=== PATIENT | female | born 1980 | race Caucasian/White ===

== ENCOUNTER → 2019-04-03 17:16 | Outpatient (CLI) | payer OTHER, SELFPAY ==
[2019-04-03 18:16] LABS: HCG Quantitative /Beta subunit 12925 mIU/mL
== END ==
PROVIDERS: PCP Family Medicine; Visit Provider Obstetrics & Gynecology
DX: Z34.90 Encounter for supervision of normal pregnancy, unspecified, unspecified trimester (principal); N96 Recurrent pregnancy loss
CPT/HCPCS: 36415; 84702

== ENCOUNTER → 2019-04-07 08:03 | Outpatient (CLI) | payer OTHER, SELFPAY ==
[2019-04-07 09:02] LABS: HCG Quantitative /Beta subunit 11004 mIU/mL
== END ==
PROVIDERS: PCP Family Medicine; Visit Provider Obstetrics & Gynecology
DX: Z34.90 Encounter for supervision of normal pregnancy, unspecified, unspecified trimester (principal); N96 Recurrent pregnancy loss
CPT/HCPCS: 36415; 84702

== ENCOUNTER → 2019-04-09 08:16 | Outpatient (CLI) | payer OTHER, SELFPAY ==
[2019-04-09 09:49] LABS: HCG Quantitative /Beta subunit 10215 mIU/mL
== END ==
PROVIDERS: PCP Family Medicine; Visit Provider Obstetrics & Gynecology
DX: Z34.90 Encounter for supervision of normal pregnancy, unspecified, unspecified trimester (principal); N96 Recurrent pregnancy loss
CPT/HCPCS: 36415; 84702

== ENCOUNTER 2019-04-16 11:47 | Day surgery (SDC) | payer OTHER, SELFPAY ==
[2019-04-14 08:52] VITALS: BMI 29.4
[2019-04-16] VITALS (7 sets, daily range): BP systolic 97–105; BP diastolic 59–73; PULSE 66–89; RESP 11–16; TEMP 36.4–36.7; O2SAT 97–100; BMI 29.4
--- NOTE | 2019-04-16 | PATH_ITS ---
[facility] Accession Number: [id number] . 01 Material submitted: . PART A: mons pubis - RIGHT MONS PUBIS PART B: product of conception - PRODUCTS OF CONCEPTION . 02 Diagnosis: A. Skin, Right Mons Pubis, Punch Biopsy: Pending dermatopathology consultation; final diagnosis will be issued in an addendum. . B. Products of Conception: Chorionic villi present. No evidence of malignancy. MRV 04/18/2019 1200 Local . 02 Electronically signed: . Kendall Johnson MD, PhD, Pathologist NPI- [id number] . 01 Gross description: . A. Received in a formalin-filled container, labeled punch biopsy from right mons pubis, and consists of a 0.5 x 0.4 cm, portillo, wrinkled, hair-bearing, unoriented punch biopsy excised to a depth of 0.4 cm. The base is inked orange. The specimen is bisected and entirely submitted in A1. B. Received in a formalin-filled container products of conception, and consists of multiple pink-portillo soft tissue fragments mixed with blood clot, 9.0 x 6.0 x 3.5 cm in aggregate. Sectioning reveals a moderate amount of chorionic villi; however, a gestational sac or parts are not grossly identified. The remaining cut surfaces are focally hemorrhagic, otherwise portillo, grossly unremarkable. 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 ([id number]) /MRV 04/17/2019 1130 Local . 02 Pathologist provided ICD-10: O02.1, L30.9 . 02 CPT . 712067, 331950 Performed at: [address] [facility], [place], [place] [id number] MD Cameron Alcantara MD Phone: [phone] Performed at: 02 [facility] [address] [place] [id number] MD Alem Weber MD Phone: [phone]
[2019-04-16] MEDS: LACTATED RINGERS 1,000 ML 42 ML IV (12:28)
--- NOTE | 2019-04-16 13:21 | PM.HP.1 ---
History of Present Illness History of Present Illness Date Patient Seen: 04/16/19 Time Patient Seen: 13:41 Chief complaint: [id number] Narrative: Patient is a 38-year-old 4 para 1 with a missed Patient History Medical History (Updated 04/16/19 @ 14:02 by Andie Mcdermott MD) Ashkenazi Roman Catholic ancestry (Acute) HSV-1 infection (Acute) Keratosis pilaris (Acute) Kidney stones (Chronic) PCOS (polycystic ovarian syndrome) (Chronic) Spontaneous vaginal delivery (Resolved) Vaginal delivery (Resolved) Surgical History (Updated 10/02/17 @ 05:17 by Arline Perez MD) Status post dilation and curettage Family & Social History Family History (Updated 04/01/19 @ 17:06 by Samira Pedersen RN) Father Hypertension Father Hypertension Hyperlipidemia Sister Anxiety Grandfather No problems noted. Grandmother Emphysema of lung Social History: household members spouse,children Tobacco & Substance use: Smoking Status Current some day smoker alcohol intake never Meds Home Medications and Allergies Home Medications Medication Instructions Recorded Confirmed Type metformin [Glucophage] 500 mg PO DAILY 04/14/19 04/16/19 History triamcinolone acetonide 1 applictn TOP BID PRN 04/16/19 04/14/19 History Allergies Allergy/AdvReac Type Severity Reaction Status Date / Time acetaminophen [From Percocet] AdvReac Intermediate Diaphoretic Verified 04/16/19 12:15 reaction to med oxycodone [From Percocet] AdvReac Intermediate Diaphoretic Verified 04/16/19 12:15 reaction to med Exam Vital Signs (past 8 hours): - 04/16/19 12:17 Temperature 97.7 F Pulse Rate 83 Respiratory Rate 16 Blood Pressure 102/71 Pulse Oximetry 98 Oxygen Delivery Method Room Air Narrative Exam Narrative: HEENT: No thyromegaly, no anterior cervical or supraclavicular lymphadenopathy. Lungs:Clear to auscultation bilaterally, no wheezes. Cardiovascular: Regular rate and rhythm, no murmurs, rubs, or gallops. Abdomen: No scars. No hepatosplenomegaly. No masses palpable. External genitalia: On the mons pubis there are 2 erythematous lesions measuring approximately 1 and half to 1.75 cm. These are scaly. Vagina: Normal Cervix: Normal Bimanual exam: 8 Week size uterus. Mobile. Rectal: No masses. Assessment & Plan Assessment and plan (1) Missed : Current visit: Yes Status: Acute Assessment & Plan narrative: Assessment: 38-year-old 4 para 1 with a missed at 9 weeks Lesions of the mons pubis Plan: Suction D&C Biopsy of the mons pubis The risks, benefits, and alternatives to the procedure were explained to the patient. The risks including bleeding, infection, and uterine perforation. She understands these risks and agrees to proceed. A full par Q was held and consent form was signed.
--- NOTE | 2019-04-16 14:03 | PM.PREOP ---
Pre-operative Note Interval Note History & Physical reviewed/Exam performed by Physician: Yes Changes to H&P: No
--- NOTE | 2019-04-16 14:31 | SUR.OPER ---
Lithotomy on padded OR bed, head on pillow, arms secured on padded arm boards at <90 degrees abduction. Legs secured in padded yellow fins stirrups.
[2019-04-16] MEDS: BUPIVACAINE 0.25% W/ EPI (PF) 10 ML VIAL 3 ML INJ (14:48)
--- NOTE | 2019-04-16 16:25 | SUR.PHASEII ---
Discharge note: Phase II. VSS, O2 sat WNL. Pain level 1/10. Small blood spot on montez pad. Discharge instructions reviewed with good undertanding by patient and spouse. Stable for discharge to home. W/C to car.
--- NOTE | 2019-04-28 07:16 | PM.GYNOP.1 ---
Operative Date/Time/Diagnoses Date of procedure: 04/16/19 Time of procedure: 14:30 Pre-op diagnosis: Missed at 7 weeks Post-op diagnosis: same Procedure & Clinicians Procedure: Procedures Operation Date: 04/16/19 13:00 Actual Procedures Side Surgeon p Suction Dilation and Curettage Andie Mcdermott MD s punch biopsy of mons pubis Right Andie Mcdermott MD Indications: Missed at 7 weeks Surgeon: Andie Mcdermott Anesthesia Type: General (LMA) Operative Notes Findings: Seven week size anteverted uterus Large amount of products conception Closure Type: not applicable Specimen(s): other (Products of conception) Estimated blood loss (mL): 50 Blood products transfused: none Procedure in detail: After informed consent was obtained, the patient was taken to the operating room where she was placed in the dorsal supine position. After adequate LMA general anesthesia was achieved, she was placed in the dorsal lithotomy position, and prepped and draped in the usual sterile fashion. A time-out was performed. A bivalve speculum was placed into the vagina. A single-tooth tenaculum was placed on the anterior lip of the cervix. The cervical os was sequentially dilated to the # 8 Hegar dilator. The # 8 plastic curved curette passed easily into the endometrial cavity. Several passes with suction revealed a large amount of products of conception. There was also a large amount of blood and amniotic fluid. The last pass with suction revealed small amount of blood only. The instruments were removed from the uterus. The single-tooth tenaculum was removed from the anterior lip of the cervix. The bivalve speculum was removed from the vagina. There was a small amount of blood coming from the cervical os. Sponge, lap, and instrument counts were correct x2. The patient tolerated the procedure well, was taken to PACU in stable condition. Complications: none Post-operative Condition: stable Disposition: PACU Plan for aftercare: Home after recovery
== END 2019-04-16 16:01 | disposition home or self-care (01) ==
PROVIDERS: PCP Family Medicine; Visit Provider Obstetrics & Gynecology
PROC: (CPT 58120; principal; 2019-04-16 13:00)
PROC: (CPT 59820; 2019-04-16 13:00)
DX: O02.1 Missed abortion (principal); Z3A.01 Less than 8 weeks gestation of pregnancy; E28.2 Polycystic ovarian syndrome; F17.210 Nicotine dependence, cigarettes, uncomplicated; L30.9 Dermatitis, unspecified
CPT/HCPCS: 59820; 56605; J1885; J2250; J2704; J3010

== ENCOUNTER → 2019-05-06 16:30 | Outpatient (CLI) | payer OTHER, SELFPAY ==
[2019-05-06 18:36] LABS: Progesterone, Total 1.22 ng/mL
[2019-05-06 18:39] LABS: Free T4, Direct Thyroxine 1.02 ng/dL (0.78-2.19)
[2019-05-06 18:53] LABS: Thyroid Stimulating Hormone 0.26 uIU/mL (0.47-4.68)
[2019-05-09 23:49] LABS: Protein C Antigen 102 % normal (70-140)
[2019-05-12 08:31] LABS: PTT-LA Screen 35 seconds (< OR = 40); dDRVVT Screen 40 seconds (< OR = 45)
[2019-05-13 10:32] LABS: B2-Glycoprotein I IgA AB < 9 SAU (< OR = 20); B2-Glycoprotein I IgG AB < 9 SGU (< OR = 20); B2-Glycoprotein I IgM AB < 9 SMU (< OR = 20); Cardiolipin Ab IgA < 11 APL; Cardiolipin Ab IgG < 14 GPL; Cardiolipin Ab IgM 17 MPL; Phos. Serine AB IgM < 25 U/mL
[2019-05-15 10:26] LABS: dRVVT Screen 40
== END ==
PROVIDERS: PCP Family Medicine; Visit Provider Obstetrics & Gynecology
DX: N96 Recurrent pregnancy loss (principal)
CPT/HCPCS: 36415; 81240; 81241; 81291; 84144; 84439; 84443; 85302; 85306; 85597; 85613; 85730; 86146; 86147; 86148

== ENCOUNTER → 2020-04-28 08:32 | Outpatient (CLI) | payer OTHER, SELFPAY ==
[2020-04-28 09:40] LABS: COVID19 -Nasal RAPID Negative (Negative)
== END ==
PROVIDERS: PCP Family Medicine; Visit Provider Student in an Organized Health Care Education/Training Program
DX: R05 Cough (principal); Z11.59 Encounter for screening for other viral diseases
CPT/HCPCS: 87635

== ENCOUNTER 2020-05-26 09:58 | Day surgery (SDC) | payer OTHER, SELFPAY ==
[2020-05-25 07:27] VITALS: BMI 32.5
--- NOTE | 2020-05-26 | PATH_ITS ---
[facility] Accession Number: [id number] . 01 Material submitted: . product of conception - PRODUCTS OF CONCEPTION . 02 Diagnosis: Products of Conception: Products of conception identified. V 05/31/2020 0948 Local . 02 Electronically signed: . Ivy Liu MD, Pathologist NPI- [id number] . 01 Gross description: . The specimen is received in formalin, labeled products of conception, and consists of multiple portillo-pink fragments of soft tissue measuring 8.0 x 6.5 x 2.0 cm in aggregate. Chorionic villi are identified. No parts are identified. operations support representative sections are submitted in cassettes A1-A2. ([id number]) /[facility] 05/31/2020 0530 Local . 02 Pathologist provided ICD-10: O02.1 . 02 CPT . 788866 Performed at: 01 [facility] [address] [id number] MD Cameron Alcantara MD Phone: [phone] Performed at: 02 [facility] [address] [place], [place] [id number] MD Alem Weber MD Phone: [phone]
[2020-05-26 10:46] LABS: COVID19 -Nasal RAPID Negative (Negative)
[2020-05-26] MEDS: LACTATED RINGERS 1,000 ML 42 ML IV (10:57)
[2020-05-26] MEDS: ACETAMINOPHEN 325 MG TABLET 975 MG PO (12:28)
[2020-05-26] MEDS: SCOPOLAMINE 1 PATCH TOP (12:28)
--- NOTE | 2020-05-26 12:28 | P.HP_ITS ---
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 ancestry HSV-1 infection Irregular menses (~1996) Keratosis pilaris Kidney stones MTHFR deficiency complicating (~05/2019) Painful menstrual flow (~1996) PCOS (polycystic ovarian syndrome) (~2012) Psoriasis (~2016) Spontaneous vaginal delivery Vaginal delivery Surgical History (Updated 05/22/20 @ 21:34 by Khloe Pappas) Anesthesia H/O dilation and curettage (~04/16/19) Status post dilation and curettage [place] teeth extracted (~2001) Family & Social History Family History (Updated 05/21/20 @ 13:03 by Shena Marquez RN) Father Hypertension Hyperlipidemia Sister Anxiety Grandfather No problems noted. Grandmother Emphysema of lung Smoker Twin gestation with fourth Mother No problems noted. Grandfather Family estrangement Grandmother No problems noted. Social History: household members spouse,children lives independently Yes caregiver/support person No Tobacco & Substance use: Smoking Status Never smoker alcohol intake never Substance Use Type does not use Meds Home Medications and Allergies Home Medications Medication Instructions Recorded Confirmed Type cholecalciferol (vitamin D3) 1 tab PO DAILY 05/13/19 05/26/20 History prenat.vits,hadley,pmp-dlha-ugmtx 1 tab PO DAILY 05/13/19 05/26/20 History metformin 500 mg tablet 500 mg PO DAILY #90 tab 09/12/19 05/26/20 Rx enoxaparin 40 mg/0.4 mL 40 mg SUBCUT DAILY #12 ml 04/26/20 05/26/20 Rx subcutaneous syringe progesterone micronized 200 mg 200 mg PO BEDTIME #90 cap 04/26/20 05/26/20 Rx capsule Allergies Allergy/AdvReac Type Severity Reaction Status Date / Time banana AdvReac Intermediate Itchy Verified 05/24/20 12:31 throat oxycodone [From Percocet] AdvReac Intermediate Diaphoretic Verified 05/24/20 12:31 reaction to med Exam Vital Signs (past 8 hours): HEENT: No thyromegaly, no anterior cervical or supraclavicular lymphadenopathy. Lungs:Clear to auscultation bilaterally, no wheezes. Cardiovascular: Regular rate and rhythm, no murmurs, rubs, or gallops. Abdomen: No scars. No hepatosplenomegaly. No masses palpable. External genitalia: Normal Vagina: Normal Cervix: Normal Bimanual exam: 7 Week size anteverted uterus. Mobile.] No adnexal masses or tenderness Rectal: No masses. Objective Labs Labs: Laboratory Results - last 24 hr 05/26/20 10:04 COVID-19 PCR Negative Assessment & Plan Assessment & Plan narrative: Assessment: 39-year-old 8 para 2 with a missed Ab at 7 weeks Plan: Suction D&C The risks, benefits, and alternatives to the procedure were explained to the patient. The risks including bleeding, infection, and uterine perforation. She understands these risks and agrees to proceed. A full par Q was held and consent form was signed. COVID-19 COVID-19 status: Negative Result date/Date tested (Pos, Neg/Pending): 05/26/20 Time Spent With Patient Time with patient: 15-24 minutes
--- NOTE | 2020-05-26 12:40 | PM.PREOP ---
Pre-operative Note COVID-19 COVID-19 status: Negative Result date/Date tested (Pos, Neg/Pending): 05/26/20 Interval Note History & Physical reviewed/Exam performed by Physician: Yes Changes to H&P: No H&P completed within 30 days and has changed as indicated here:: 05/26/20
--- NOTE | 2020-05-26 13:13 | P.OP_ITS ---
Operative Date/Time/Diagnoses Date of procedure: 05/26/20 Time of procedure: 13:13 Pre-op diagnosis: Missed Ab Post-op diagnosis: same Procedure & Clinicians Procedure: Procedures Operation Date: 05/26/20 11:45 Actual Procedures Side Surgeon p patrick D&Luc Mcdermott MD Indications: Missed Ab Surgeon: Andie Mcdermott Anesthesia Type: General (LMA) Operative Notes Findings: Seven week size anteverted uterus Large amount of products conception Closure Type: not applicable Specimen(s): other (Products of conception) Estimated blood loss (mL): 15 Blood products transfused: none Procedure in detail: After informed consent was obtained, the patient was taken to the operating room where she was placed in the dorsal supine position. After adequate LMA general anesthesia was achieved, she was placed in the dorsal lithotomy position, and prepped and draped in the usual sterile fashion. A time-out was performed. A bivalve speculum was placed into the vagina and the anterior lip of the cervix grasped with a single-tooth tenaculum. The cervical os was sequentially dilated to the # 8 Hegar dilator. The # 7 curved plastic curette passed easily into the endometrial cavity. Several passes with suction revealed a large amount of fluid and tissue. Suction curette was removed. Polyp forceps were used to remove some small pieces of tissue. Several more passes with suction revealed blood only. Gentle sharp curettage was performed yielding minimal amount of tissue. One more pass with suction revealed blood only. The instruments were removed from the uterus. The single-tooth tenaculum was removed from the anterior lip of the cervix. The bivalve speculum was removed from the vagina. Sponge, lap, and instrument counts were correct x2. The patient tolerated the procedure well, and was taken to PACU in stable cond ition. Complications: none Post-operative Condition: stable Disposition: PACU Plan for aftercare: Home after recovery
[2020-05-26 13:14] VITALS: BP 120/75; PULSE 78; RESP 16; TEMP 36.2; O2SAT 99
[2020-05-26 13:19] VITALS: BP 112/72; PULSE 76; RESP 16; O2SAT 99
--- NOTE | 2020-05-26 13:20 | SUR.OPER ---
Lithotomy on padded OR bed, head on pillow, arms secured on padded arm boards at <90 degrees abduction. Legs secured in padded yellow fins stirrups.
[2020-05-26 13:24] VITALS: BP 114/70; PULSE 74; RESP 16; O2SAT 99
[2020-05-26 13:29] VITALS: BP 121/71; PULSE 80; RESP 16; O2SAT 99
[2020-05-26 13:33] VITALS: BP 113/61; PULSE 86; RESP 12; TEMP 36.3; O2SAT 100
[2020-05-26 13:54] VITALS: BP 108/77; PULSE 66; RESP 16; TEMP 36.3; O2SAT 100
== END 2020-05-26 14:00 | disposition home or self-care (01) ==
PROVIDERS: PCP Family Medicine; Referring Provider Obstetrics & Gynecology; Visit Provider Obstetrics & Gynecology
PROC: (CPT 58120; principal; 2020-05-26 11:45)
DX: O02.1 Missed abortion (principal); Z3A.01 Less than 8 weeks gestation of pregnancy; Z20.828 Contact with and (suspected) exposure to other viral communicable diseases
CPT/HCPCS: 59820; 87635; J1100; J1885; J2250; J2405; J2704

== ENCOUNTER → 2020-09-30 08:06 | Outpatient (CLI) | payer OTHER, SELFPAY ==
[2020-09-30 08:55] LABS: Hemoglobin A1C% w Est Avg Glu 5.2 % (4.0-6.0)
== END ==
PROVIDERS: PCP Family Medicine; Referring Provider Obstetrics & Gynecology; Visit Provider Obstetrics & Gynecology
DX: N96 Recurrent pregnancy loss (principal); E28.2 Polycystic ovarian syndrome; R76.0 Raised antibody titer
CPT/HCPCS: 36415; 83036; 84439; 84443

== ENCOUNTER → 2021-11-07 15:57 | Outpatient (CLI) | payer OTHER, SELFPAY ==
--- NOTE | 2021-11-07 15:59 | DI.MG.S_ITS ---
BILATERAL DIGITAL SCREENING MAMMOGRAM 3D/2D WITH CAD: 11/07/2021 CLINICAL: Routine screening. Baseline exam. No prior exams were available for comparison. The tissue of both breasts is heterogeneously dense. This may lower the sensitivity of mammography. Current study was also evaluated with a Computer Aided Detection (CAD) system. No significant masses, calcifications, or other findings are seen in either breast. IMPRESSION: NEGATIVE There is no mammographic evidence of malignancy. A 1 year screening mammogram is recommended. This exam was interpreted at Station ID: [id number]. NOTE: For mammograms, a report in lay terms will be sent to the patient. Approximately 15% of breast malignancies will not be visualized mammographically. In the management of a palpable breast mass, a negative mammogram must not discourage biopsy of a clinically suspicious lesion. Electronically Signed By: Camron wei/diana:11/08/2021 08:25:14 letter sent: Normal Exam ACR BI-RADS Category 1: Negative 3341F
== END ==
PROVIDERS: PCP Family Medicine; Referring Provider Family Medicine; Visit Provider Family Medicine
DX: Z12.31 Encounter for screening mammogram for malignant neoplasm of breast (principal)
CPT/HCPCS: 77063; 77067

== ENCOUNTER → 2022-03-14 17:10 | Outpatient (CLI) | payer OTHER, SELFPAY ==
[2022-03-14 18:22] LABS: HCG Quantitative /Beta subunit 32.1 mIU/mL
== END ==
PROVIDERS: PCP Family Medicine; Referring Provider Obstetrics & Gynecology; Visit Provider Obstetrics & Gynecology
DX: N91.2 Amenorrhea, unspecified (principal); N96 Recurrent pregnancy loss
CPT/HCPCS: 36415; 84702

== ENCOUNTER → 2022-11-08 16:30 | Outpatient (CLI) | payer OTHER, SELFPAY ==
--- NOTE | 2022-11-08 | DI.MG.S_ITS ---
BILATERAL DIGITAL SCREENING MAMMOGRAM 3D/2D WITH CAD: 11/08/2022 CLINICAL: Routine screening. Comparison is made to exam dated: 11/07/2021 mammogram - [facility]. Both breasts are heterogeneously dense, which may obscure small masses (category c / 51-75% glandular tissue). Current study was also evaluated with a Computer Aided Detection (CAD) system. There is a possible developing asymmetry with an obscured margin in the left breast posterior depth central to the nipple seen on the craniocaudal view only. No other significant masses, calcifications, or other findings are seen in either breast. IMPRESSION: INCOMPLETE: NEEDS ADDITIONAL IMAGING EVALUATION The possible developing asymmetry in the left breast is indeterminate. Additional views with possible ultrasound are recommended. Based on the Tyrer Cuzick model (a risk assessment model) the patient's lifetime risk is 14.1% and her 10 year risk is 1.9%. According to the ACR, ACS, and NCCN guidelines, an annual breast MRI exam along with mammogram is recommended if the patient's lifetime risk is 20% or greater. This exam was interpreted at Station ID: [id number]. NOTE: For mammograms, a report in lay terms will be sent to the patient. Approximately 15% of breast malignancies will not be visualized mammographically. In the management of a palpable breast mass, a negative mammogram must not discourage biopsy of a clinically suspicious lesion. Electronically Signed By: Corey Polanco M.D. [facility]/:11/10/2022 17:03:29 letter sent: Additional Imaging Needed ACR BI-RADS Category 0: Incomplete 3340F
== END ==
PROVIDERS: PCP Family Medicine; Referring Provider Family Medicine; Visit Provider Family Medicine
DX: Z12.31 Encounter for screening mammogram for malignant neoplasm of breast (principal)
CPT/HCPCS: 77063; 77067

== ENCOUNTER → 2022-12-06 09:36 | Outpatient (CLI) | payer OTHER, SELFPAY ==
--- NOTE | 2022-12-06 09:37 | DI.MG.S_ITS ---
UNILATERAL LEFT DIGITAL DIAGNOSTIC MAMMOGRAM 3D/2D WITH ADDITIONAL VIEWS: 12/06/2022 CLINICAL: Additional evaluation requested from prior study. Comparison is made to exams dated: 11/08/2022 mammogram and 11/07/2021 mammogram - [facility]. The left breast is heterogeneously dense, which may obscure small masses (category c / 51-75% glandular tissue). There is a possible asymmetry in the left breast posterior depth central to the nipple seen on the craniocaudal view only. This is not seen in additional views and likely represents superimposition. No other significant masses or calcifications are seen in the breast. IMPRESSION: BENIGN There is no mammographic evidence of malignancy. Return to annual mammogram screening schedule is recommended. Based on the Tyrer Cuzick model (a risk assessment model) the patient's lifetime risk is 14.1% and her 10 year risk is 1.9%. According to the ACR, ACS, and NCCN guidelines, an annual breast MRI exam along with mammogram is recommended if the patient's lifetime risk is 20% or greater. This exam was interpreted at Station ID: [id number]. NOTE: For mammograms, a report in lay terms will be sent to the patient. Approximately 15% of breast malignancies will not be visualized mammographically. In the management of a palpable breast mass, a negative mammogram must not discourage biopsy of a clinically suspicious lesion. Electronically Signed By: Ted Mesa M.D. lc/:12/06/2022 10:05:56 letter sent: Normal Exam ACR BI-RADS Category 2: Benign Finding(s) 3342F
== END ==
PROVIDERS: PCP Family Medicine; Referring Provider Family Medicine; Visit Provider Family Medicine
DX: R92.8 Other abnormal and inconclusive findings on diagnostic imaging of breast (principal); N63.20 Unspecified lump in the left breast, unspecified quadrant
CPT/HCPCS: 77065; G0279

== ENCOUNTER → 2023-06-11 08:05 | Outpatient (CLI) | payer OTHER, SELFPAY ==
[2023-06-11 10:00] LABS: Alanine Aminotransferase 20 IU/L (<35); Albumin Globulin Ratio 1.3 (1.0-2.8); Alkaline Phosphatase 67 U/L (38-126); Aspartate Aminotransferase 20 IU/L (14-36); BUN Creatinine Ratio 12.5 (6-22); Bilirubin Total 0.5 mg/dL (0.2-1.3); Blood Urea Nitrogen 10 mg/dL (7-17); Calcium 9.3 mg/dL (8.4-10.2); Carbon Dioxide 27 mmol/L (22-32); Chloride 104 mmol/L (98-107); Cholesterol 198 mg/dL (140-199); Estimated Glomerular Filt Rate > 60 mL/min (>60); Globulin 3.2 g/dL (1.7-4.1); Glucose 83 mg/dL (70-100); HDL Cholesterol 49 mg/dL (40-60); HEMOLYSIS < 15 (0-50); LDL Cholesterol Calculated 130 mg/dL (<100); Potassium 4.4 mmol/L (3.4-5.1); Sodium 138 mmol/L (137-145); Total Protein 7.2 g/dL (6.3-8.2); Triglycerides 97 mg/dL (35-150)
[2023-06-11 11:20] LABS: Creatinine Urine Random 286.6 mg/dL
[2023-06-12 19:59] LABS: Microalbumi Creatinin Ratio Ur 32.7 ug/mg CR (<30); Microalbumin Urine Random 9.4 mg/dL (0-1.6)
== END ==
PROVIDERS: PCP Family Medicine; Referring Provider Family Medicine; Visit Provider Family Medicine
DX: I10 Essential (primary) hypertension (principal)
CPT/HCPCS: 36415; 80053; 80061; 82043; 82570

== ENCOUNTER → 2023-11-15 15:33 | Outpatient (CLI) | payer OTHER, SELFPAY ==
--- NOTE | 2023-11-15 | DI.MG.S_ITS ---
BILATERAL DIGITAL SCREENING MAMMOGRAM 3D/2D WITH CAD: 11/15/2023 CLINICAL: Routine screening. Comparison is made to exams dated: 12/06/2022 mammogram, 11/08/2022 mammogram, and 11/07/2021 mammogram - [facility]. Both breasts are heterogeneously dense, which may obscure small masses (category c / 51-75% glandular tissue). Current study was also evaluated with a Computer Aided Detection (CAD) system. No significant masses, calcifications, or other findings are seen in either breast. There has been no significant interval change. IMPRESSION: NEGATIVE There is no mammographic evidence of malignancy. A 1 year screening mammogram is recommended. Based on the Tyrer Cuzick model (a risk assessment model) the patient's lifetime risk is 14.0% and her 10 year risk is 2.1%. According to the ACR, ACS, and NCCN guidelines, an annual breast MRI exam along with mammogram is recommended if the patient's lifetime risk is 20% or greater. This exam was interpreted at Station ID: [id number]. NOTE: For mammograms, a report in lay terms will be sent to the patient. Approximately 15% of breast malignancies will not be visualized mammographically. In the management of a palpable breast mass, a negative mammogram must not discourage biopsy of a clinically suspicious lesion. Electronically Signed By: Ted bell/diana:11/16/2023 09:37:03 letter sent: Normal Exam ACR BI-RADS Category 1: Negative 3341F
== END ==
LOC: MAMMO 15:33
PROVIDERS: PCP Family Medicine; Referring Provider Family Medicine; Visit Provider Family Medicine
DX: Z12.31 Encounter for screening mammogram for malignant neoplasm of breast (principal); R92.333 Mammographic heterogeneous density, bilateral breasts
CPT/HCPCS: 77063; 77067

== ENCOUNTER 2024-06-17 16:15 | Outpatient (RCR) | payer OTHER, SELFPAY ==
--- NOTE | 2024-05-13 16:04 | PT.OIE ---
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 Irregular menses (~1996) Keratosis pilaris Kidney stones MTHFR deficiency complicating (~05/2019) Painful menstrual flow (~1996) PCOS (polycystic ovarian syndrome) (~2012) Psoriasis (~2016) Spontaneous vaginal delivery Vaginal delivery Past Surgical History (Last Updated 05/22/20 @ 21:34 by Khloe Pappas) Anesthesia H/O dilation and curettage (~04/16/19) Status post dilation and curettage [place] teeth extracted (~2001) Visit Care Team Role Provider Type Gela Butler MD Attending Provider Physician Family Provider Primary Care Provider Referring Provider Specialty: [facility] Practice Address: [address] [place] [address], [facility] Email: [email or web address] Physical Therapy Initial Evaluation PT-OP-A Visit Information Start: 05/12/24 14:50 Freq: Status: Active Protocol: Document 05/13/24 13:51 [facility] (Rec: 05/13/24 15:32 [facility] [id number]) Out-Patient Physical Therapy Visit Information Visit Information Visit Type Initial Evaluation Visit Start Time 13:49 Visit Stop Time 14:34 Visit Number 1 Number of HEEL SEAT FLAP STAPLER Visits 0 PT-OP-B Current Condition Start: 05/12/24 14:50 Freq: Status: Active Protocol: Document 05/13/24 13:51 [facility] (Rec: 05/13/24 15:32 [facility] [id number]) Current Condition History of Current Condition Current Complaints November 2023 History of Current Condition pt did something this year to her arm and thinks it was doing a pec stretch in doorway the massage therapist told her might help some of her tension in back. The next am woke up w/excruitating pain in arm w/reaching, wb etc. Took a while to be seen by doctor and seh said thought is impingment. Can now put wt into but hurts to reach out or behind and still wakes her if she moves her arm the wrong way in the middle of the night . Was doing ice and ibuprofen but stopped ibuprofen but didn 't make a difference. Pain isn 't lessening. Mom let her borrow tens unit. Feels good on but doesn't fix anything. denies numbness/tingling. 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 Can feel like a soreness/heaviness w/ fwd flex but it's not really painful. Doesn't get in the way at work. Pt started getting neck pain 2.5 years ago started getting really back neck pain and MEJÍA. Used to be daily. have been getting worse again the past couple months. Gets really painful periods and can get dizziness associated w/this but takes meds for it. Has been dx w/ PCOS. HAs are all over and they will move throughout head . has tightness in midback and up to neck. When would get a massage it would feel like a bruise when it is worked on. Feels better after though. Even just sitting upright, can feel it. Has had high BP and was on meds for a while and then went to gym and got off it. It is getting more elevated as she hasn't been able to go to the gym d/t 's injury. Stopped gym right before . was going consistantly since year. Treatment Goals Patient/Caregiver Goals improve R shoulder mobility and dec pain w/reaching PT-OP-C Subjective Start: 05/12/24 14:50 Freq: Status: Active Protocol: Document 05/13/24 13:51 [facility] (Rec: 05/13/24 15:32 [facility] [id number]) Patient Questionnaires Quick Dash- Upper Extremity Quick Dash UE Score 15.9 OP-PT Pain Assessment Location R arm Pain Location Details R lat brachium Scale Used constant:1/10; worst:7 Description Aching,Sharp,Tightness,With Movement Frequency Constant Pain Duration constant worse w/movement then goes away Pain Aggravating Factors ADL's Other Pain Aggravating Factors reaching, bra, reaching for covers, pull across self, reaching behind Pain Alleviating Factors Inactivity PT-OP-J Posture/Palpation/Skin Start: 05/12/24 14:50 Freq: Status: Active Protocol: Document 05/13/24 13:51 [facility] (Rec: 05/13/24 15:32 [facility] [id number]) Posture Evaluation [place] Postural Classification System [facility] Postural Classifications Posterior/Anterior Elbow Flexion Test 0 Comments Posture Comments L pelvic shear, L thoracic rotation, R scap more ant rotated and abd, R shoulder lower than L, humer ant in glenoid R, fwd head, inc kyphosis PT-OP-K Range of Motion Start: 05/12/24 14:50 Freq: Status: Active Protocol: Document 05/13/24 13:51 [facility] (Rec: 05/13/24 15:32 [facility] [id number]) Cervical Spine Range of Motion Cervical Spine Active Degrees Flexion 50 Extension 53 Rotation Left 68 Rotation Right 78 Lateral Flexion Left 38 Lateral Flexion Right 35 Shoulder Goniometric Range of Motion Shoulder Right Active Flexion 154 Extension 32 Abduction 160 External Rotation at 0 degrees Abduction 68 Internal Rotation Behind Back (text) T9 Left Active Flexion 165 Extension 56 Abduction 168 External Rotation at 0 degrees Abduction 82 Internal Rotation Behind Back (text) T5 PT-OP-L Special Tests Start: 05/12/24 14:50 Freq: Status: Active Protocol: Document 05/13/24 13:51 [facility] (Rec: 05/13/24 15:32 [facility] [id number]) Special Tests Cervical Spine Special Tests tectoral membrane Test Results neg Alar Ligament Test Results neg arterial screen Test Results positional testing Neg Comments 152/96, ausciltation wnl Transverse Ligament Test Results neg compression/traction Test Results neg Shoulder Special Tests Monet Nirmal Impingement Comments postive R Empty Can Comments positive R [place] Test Comments more painful than speeds Speed's Biceps Comments mild pain Neer Impingement Comments neg Neural Special Tests- Upper Body Median Nerve Tension Comments positive R Radial Nerve Tension Comments neg R Ulnar Nerve Tension Comments negR PT-OP-M Strength Start: 05/12/24 14:50 Freq: Status: Active Protocol: Document 05/13/24 13:51 [facility] (Rec: 05/13/24 15:32 [facility] [id number]) Shoulder Strength Shoulder Manual Muscle Testing Right Flexion 4- Good- Extension 3+ Fair+ Abduction (C5) 4- Good- External Rotation 4- Good- Internal Rotation 4 Good Left Flexion 5 Normal Extension 5 Normal Abduction (C5) 5 Normal External Rotation 5 Normal Internal Rotation 5 Normal Elbow/Forearm Strength Elbow and Forearm Manual Muscle Testing Right Flexion (C6) 4 Good Left Flexion (C6) 5 Normal PT-OP-Q Treatments Start: 05/12/24 14:50 Freq: Status: Active Protocol: Document 05/13/24 13:51 [facility] (Rec: 05/13/24 15:32 [facility] [id number]) Self-Care/Home Management Treatment Education Other Education 8 min: edu on postural changes and how that affects her R shoulder and how cervical pain may be rlated to her R shoulder pain. Discussed n tension positive and education on likely supraspinatus (and what it is) causing impingment issues d/t mechanics PT-OP-T Assessment and Plan Start: 05/12/24 14:50 Freq: Status: Active Protocol: Document 05/13/24 13:51 [facility] (Rec: 05/13/24 15:32 [facility] [id number]) Physical Therapy Assessment Rehab Potential Rehabilitation Potential Good Evaluation Complexity Number of Personal Factors/Comorbidities 3 or More Number of Body Systems Impaired 4 or More Clinical Presentation at Evaluation Evolving Impairments Impairments Activity Tolerance,Functional Activities,Functional Mobility ,Pain,Posture,ROM,Soft Tissue Mobility,Strength Other Concerns Barriers to Rehabilitation high deductible Goals strength Short Term Goal (STG) Pt will be indep w/HEP STG Duration 06/13/24 Facilities Clerk Goal (LTG) pt will score at least 4+/5 on all RUE MMT and at least 4/5 EFT to show improved scap stability to allow for improved daily activities w/o inc pain. LTG Duration 07/14/24 ROM Longterm Goal (LTG) Pt will have equal ROM to L side w/o inc pain in order to allow normal daily activites LTG Duration 07/22/24 activities Short Term Goal (STG) Pt will be able to sleep w/o being awoken d/t R shoulder pain. STG Duration 06/13/24 Facilities Clerk Goal (LTG) Pt will be dress, reach behind and across w/o inc pain in R shoulder LTG Duration 07/14/24 Assessment Summary Assessment Pt presents w/R shoulder pain over past few months along w/ chronic neck pain and MEJÍA that may be related d/t postural position and dec stability causing difficulty w/her mobility. She has overall weakness and poor postural alignment. She will benefit from skilled PT to work on strengthening, cervical stability along w/improve postural positioning and mechanics to dec pain. Physical Therapy Plan Frequency and Duration Frequency of Treatment 1-2x/wk Duration of treatment (weeks) 10 Plan of Care Start Date 05/13/24 Plan of Care End Date 07/22/24 Therapeutic Interventions Therapeutic Interventions Home Exercise Program,Joint Mobilizations,Manual Therapy, Neuromuscular Re-education, Orthotic/Prosthetic Management ,Patient/Caregiver Education, Self-Care/Home Management,Soft Tissue Mobilization,Taping, Therapeutic Activities, Therapeutic Exercises Modalities Cold Pack/Ice Massage,Electric Stimulation,Hot Packs, Infrared Therapy,Ultrasound Next Visit Focus/Plan Next Note Type Treatment Note Next Visit Plan HEP: rows, ER, Habd, chin tuck , plank, foam roll Manual: upper tspine, SC, AC, ribs, GHJ and STM around shoulder
--- NOTE | 2024-05-13 16:04 | PT.OPPOC ---
Physical, Occupational & Speech Therapy At [facility] Current Diagnoses Pain in right shoulder (05/13/24) Pain in right arm (05/13/24) Visit Care Team Role Provider Type Gela Butler MD Attending Provider Physician Family Provider Primary Care Provider Referring Provider Specialty: Family Practice Address: [address] [place] [address], [place], [address] Email: [email or web address] Plan Of Care PT-OP-B Current Condition Start: 05/12/24 14:50 Freq: Status: Active Protocol: Document 05/13/24 13:51 [facility] (Rec: 05/13/24 15:32 [facility] [id number]) Current Condition History of Current Condition Current Complaints November 2023 History of Current Condition pt did something this year to her arm and thinks it was doing a pec stretch in doorway the massage therapist told her might help some of her tension in back. The next am woke up w/excruitating pain in arm w/reaching, wb etc. Took a while to be seen by doctor and seh said thought is impingment. Can now put wt into but hurts to reach out or behind and still wakes her if she moves her arm the wrong way in the middle of the night . Was doing ice and ibuprofen but stopped ibuprofen but didn 't make a difference. Pain isn 't lessening. Mom let her borrow tens unit. Feels good on but doesn't fix anything. denies numbness/tingling. 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 Can feel like a soreness/heaviness w/ fwd flex but it's not really painful. Doesn't get in the way at work. Pt started getting neck pain 2.5 years ago started getting really back neck pain and MEJÍA. Used to be daily. have been getting worse again the past couple months. Gets really painful periods and can get dizziness associated w/this but takes meds for it. Has been dx w/ PCOS. HAs are all over and they will move throughout head . has tightness in midback and up to neck. When would get a massage it would feel like a bruise when it is worked on. Feels better after though. Even just sitting upright, can feel it. Has had high BP and was on meds for a while and then went to gym and got off it. It is getting more elevated as she hasn't been able to go to the gym d/t 's injury. Stopped gym right before . was going consistantly since shcool year. Treatment Goals Patient/Caregiver Goals improve R shoulder mobility and dec pain w/reaching PT-OP-T Assessment and Plan Start: 05/12/24 14:50 Freq: Status: Active Protocol: Document 05/13/24 13:51 [facility] (Rec: 05/13/24 15:32 [facility] [id number]) Physical Therapy Assessment Rehab Potential Rehabilitation Potential Good Evaluation Complexity Number of Personal Factors/Comorbidities 3 or More Number of Body Systems Impaired 4 or More Clinical Presentation at Evaluation Evolving Impairments Impairments Activity Tolerance,Functional Activities,Functional Mobility ,Pain,Posture,ROM,Soft Tissue Mobility,Strength Other Concerns Barriers to Rehabilitation high deductible Goals strength Short Term Goal (STG) Pt will be indep w/HEP STG Duration 06/13/24 Programming Director Goal (LTG) pt will score at least 4+/5 on all RUE MMT and at least 4/5 EFT to show improved scap stability to allow for improved daily activities w/o inc pain. LTG Duration 07/14/24 ROM Custodial Goal (LTG) Pt will have equal ROM to L side w/o inc pain in order to allow normal daily activites LTG Duration 07/22/24 activities Short Term Goal (STG) Pt will be able to sleep w/o being awoken d/t R shoulder pain. STG Duration 06/13/24 Programming Director Goal (LTG) Pt will be dress, reach behind and across w/o inc pain in R shoulder LTG Duration 07/14/24 Assessment Summary Assessment Pt presents w/R shoulder pain over past few months along w/ chronic neck pain and MEJÍA that may be related d/t postural position and dec stability causing difficulty w/her mobility. She has overall weakness and poor postural alignment. She will benefit from skilled PT to work on strengthening, cervical stability along w/improve postural positioning and mechanics to dec pain. Physical Therapy Plan Frequency and Duration Frequency of Treatment 1-2x/wk Duration of treatment (weeks) 10 Plan of Care Start Date 05/13/24 Plan of Care End Date 07/22/24 Therapeutic Interventions Therapeutic Interventions Home Exercise Program,Joint Mobilizations,Manual Therapy, Neuromuscular Re-education, Orthotic/Prosthetic Management ,Patient/Caregiver Education, Self-Care/Home Management,Soft Tissue Mobilization,Taping, Therapeutic Activities, Therapeutic Exercises Modalities Cold Pack/Ice Massage,Electric Stimulation,Hot Packs, Infrared Therapy,Ultrasound Next Visit Focus/Plan Next Note Type Treatment Note Next Visit Plan HEP: rows, ER, Habd, chin tuck , plank, foam roll Manual: upper tspine, SC, AC, ribs, GHJ and STM around shoulder Plan of Care Dates Plan of Care Start Date 05/13/24 Plan of Care End Date 07/22/24 Electronically Signed by: Gela Rivas, PT 05/13/24 8032 If you are in agreement with this Plan of Care, please return a signed and dated copy. I have reviewed this Plan of Care and certify that the skilled therapy services above are required to meet the patient?s needs. Physician Signature Date Printed Name and Credentials Clinical Instructor Signature Printed Name and Credentials
--- NOTE | 2024-05-22 18:32 | PT.OTN ---
Current Diagnoses Pain in right shoulder (05/22/24) Pain in right arm (05/22/24) Physical Therapy Treatment Note PT-OP-A Visit Information Start: 05/12/24 14:50 Freq: Status: Active Protocol: Document 05/22/24 16:17 [facility] (Rec: 05/22/24 18:32 [facility] [id number]) Out-Patient Physical Therapy Visit Information Visit Information Visit Type Treatment Note Visit Start Time 16:18 Visit Stop Time 16:58 Visit Number 2 Number of FAMILY DEVELOPMENT SPECIALIST Visits 0 PT-OP-B Current Condition Start: 05/12/24 14:50 Freq: Status: Active Protocol: Document 05/13/24 13:51 [facility] (Rec: 05/13/24 15:32 [facility] [id number]) Current Condition History of Current Condition Current Complaints November 2023 History of Current Condition pt did something this year to her arm and thinks it was doing a pec stretch in doorway the massage therapist told her might help some of her tension in back. The next am woke up w/excruitating pain in arm w/reaching, wb etc. Took a while to be seen by doctor and seh said thought is impingment. Can now put wt into but hurts to reach out or behind and still wakes her if she moves her arm the wrong way in the middle of the night . Was doing ice and ibuprofen but stopped ibuprofen but didn 't make a difference. Pain isn 't lessening. Mom let her borrow tens unit. Feels good on but doesn't fix anything. denies numbness/tingling. 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 Can feel like a soreness/heaviness w/ fwd flex but it's not really painful. Doesn't get in the way at work. Pt started getting neck pain 2.5 years ago started getting really back neck pain and MEJÍA. Used to be daily. have been getting worse again the past couple months. Gets really painful periods and can get dizziness associated w/this but takes meds for it. Has been dx w/ PCOS. HAs are all over and they will move throughout head . has tightness in midback and up to neck. When would get a massage it would feel like a bruise when it is worked on. Feels better after though. Even just sitting upright, can feel it. Has had high BP and was on meds for a while and then went to gym and got off it. It is getting more elevated as she hasn't been able to go to the gym d/t 's injury. Stopped gym right before . was going consistantly since shcool year. Treatment Goals Patient/Caregiver Goals improve R shoulder mobility and dec pain w/reaching PT-OP-C Subjective Start: 05/12/24 14:50 Freq: Status: Active Protocol: Document 05/22/24 16:17 [facility] (Rec: 05/22/24 18:32 [facility] [id number]) OP-PT Subjective Patient Comments Patient Comments Pt woke up w/MEJÍA at base of skull and into forehead PT-OP-J Posture/Palpation/Skin Start: 05/12/24 14:50 Freq: Status: Active Protocol: Document 05/13/24 13:51 [facility] (Rec: 05/13/24 15:32 [facility] [id number]) Posture Evaluation [facility] Postural Classification System [facility] Postural Classifications Posterior/Anterior Elbow Flexion Test 0 Comments Posture Comments L pelvic shear, L thoracic rotation, R scap more ant rotated and abd, R shoulder lower than L, humer ant in glenoid R, fwd head, inc kyphosis PT-OP-K Range of Motion Start: 05/12/24 14:50 Freq: Status: Active Protocol: Document 05/13/24 13:51 [facility] (Rec: 05/13/24 15:32 [facility] [id number]) Cervical Spine Range of Motion Cervical Spine Active Degrees Flexion 50 Extension 53 Rotation Left 68 Rotation Right 78 Lateral Flexion Left 38 Lateral Flexion Right 35 Shoulder Goniometric Range of Motion Shoulder Right Active Flexion 154 Extension 32 Abduction 160 External Rotation at 0 degrees Abduction 68 Internal Rotation Behind Back (text) T9 Left Active Flexion 165 Extension 56 Abduction 168 External Rotation at 0 degrees Abduction 82 Internal Rotation Behind Back (text) T5 PT-OP-L Special Tests Start: 05/12/24 14:50 Freq: Status: Active Protocol: Document 05/13/24 13:51 [facility] (Rec: 05/13/24 15:32 [facility] [id number]) Special Tests Cervical Spine Special Tests tectoral membrane Test Results neg Alar Ligament Test Results neg arterial screen Test Results positional testing Neg Comments 152/96, ausciltation wnl Transverse Ligament Test Results neg compression/traction Test Results neg Shoulder Special Tests Monet Nirmal Impingement Comments postive R Empty Can Comments positive R [place] Test Comments more painful than speeds Speed's Biceps Comments mild pain Neer Impingement Comments neg Neural Special Tests- Upper Body Median Nerve Tension Comments positive R Radial Nerve Tension Comments neg R Ulnar Nerve Tension Comments negR PT-OP-M Strength Start: 05/12/24 14:50 Freq: Status: Active Protocol: Document 05/13/24 13:51 [facility] (Rec: 05/13/24 15:32 [facility] [id number]) Shoulder Strength Shoulder Manual Muscle Testing Right Flexion 4- Good- Extension 3+ Fair+ Abduction (C5) 4- Good- External Rotation 4- Good- Internal Rotation 4 Good Left Flexion 5 Normal Extension 5 Normal Abduction (C5) 5 Normal External Rotation 5 Normal Internal Rotation 5 Normal Elbow/Forearm Strength Elbow and Forearm Manual Muscle Testing Right Flexion (C6) 4 Good Left Flexion (C6) 5 Normal PT-OP-Q Treatments Start: 05/12/24 14:50 Freq: Status: Active Protocol: Document 05/22/24 16:17 [facility] (Rec: 05/22/24 18:32 [facility] [id number]) Therapeutic Exercises Sitting Exercises stretches Sitting Exercise Name 1. LS 2. UT 3. scalenes Side bilateral Reps/Minutes 20 sec ea Standing Exercises ER Side bilateral Equipment Used orange band Reps/Minutes 2x10 Comments cues scap row Side bilateral Equipment Used hoopa Reps/Minutes 15 Comments cues scap Manual Therapy Treatment Consent Patient gave verbal consent for manual Yes treatment Soft Tissue Mobilization anterior Body Location R pec Mobilization Type Rolling Intensity/Depth Moderate Body Position Supine superior Body Location R UT, LS & scalenes & SCM Mobilization Type Rolling Body Position supine and s/l Comments w/scap movement and cervical rot posterior Body Location R lat Mobilization Type Rolling Intensity/Depth Moderate Body Position Sidelying Comments w/scap movement Joint Mobilizations GH Joint R post gldie and translation, Lat gapping, distraction and inf glide c/r Body Position Hooklying AC Joint R ant clavicle c/r Body Position Sidelying ribs Joint R PA rib 5 w/scap movement and caudal R rib 1 PT-OP-T Assessment and Plan Start: 05/12/24 14:50 Freq: Status: Active Protocol: Document 05/22/24 16:17 [facility] (Rec: 05/22/24 18:32 [facility] [id number]) Physical Therapy Assessment Goals strength Short Term Goal (STG) Pt will be indep w/HEP STG Duration 06/13/24 Mcfp Goal (LTG) pt will score at least 4+/5 on all RUE MMT and at least 4/5 EFT to show improved scap stability to allow for improved daily activities w/o inc pain. LTG Duration 07/14/24 ROM Mcfp Goal (LTG) Pt will have equal ROM to L side w/o inc pain in order to allow normal daily activites LTG Duration 07/22/24 activities Short Term Goal (STG) Pt will be able to sleep w/o being awoken d/t R shoulder pain. STG Duration 06/13/24 Mcfp Goal (LTG) Pt will be dress, reach behind and across w/o inc pain in R shoulder LTG Duration 07/14/24 Assessment Summary Assessment Pt had improved passive abd w/ less discomofrt after manual treatment. did well with exercises w/o inc pain. Physical Therapy Plan Frequency and Duration Frequency of Treatment 1-2x/wk Duration of treatment (weeks) 10 Plan of Care Start Date 05/13/24 Plan of Care End Date 07/22/24 Next Visit Focus/Plan Next Note Type Treatment Note Next Visit Plan review HEP: rows, ER, chin tuck Try: plank, foam roll, Habd Manual: upper tspine, SC, AC, ribs, GHJ and STM around shoulder
--- NOTE | 2024-05-26 12:33 | PT.OTN ---
Current Diagnoses Pain in right shoulder (05/26/24) Pain in right arm (05/26/24) Physical Therapy Treatment Note PT-OP-A Visit Information Start: 05/12/24 14:50 Freq: Status: Active Protocol: Document 05/26/24 10:41 AB (Rec: 05/26/24 12:32 AB [id number]) Out-Patient Physical Therapy Visit Information Visit Information Visit Type Treatment Note Visit Start Time 11:34 Visit Stop Time 12:19 Visit Number 3 Number of PAINTER Visits 1 PT-OP-B Current Condition Start: 05/12/24 14:50 Freq: Status: Active Protocol: Document 05/13/24 13:51 [facility] (Rec: 05/13/24 15:32 [facility] [id number]) Current Condition History of Current Condition Current Complaints November 2023 History of Current Condition pt did something this year to her arm and thinks it was doing a pec stretch in doorway the massage therapist told her might help some of her tension in back. The next am woke up w/excruitating pain in arm w/reaching, wb etc. Took a while to be seen by doctor and se said thought is impingment. Can now put wt into but hurts to reach out or behind and still wakes her if she moves her arm the wrong way in the middle of the night . Was doing ice and ibuprofen but stopped ibuprofen but didn 't make a difference. Pain isn 't lessening. Mom let her borrow tens unit. Feels good on but doesn't fix anything. denies numbness/tingling. 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 Can feel like a soreness/heaviness w/ fwd flex but it's not really painful. Doesn't get in the way at work. Pt started getting neck pain 2.5 years ago started getting really back neck pain and MEJÍA. Used to be daily. have been getting worse again the past couple months. Gets really painful periods and can get dizziness associated w/this but takes meds for it. Has been dx w/ PCOS. HAs are all over and they will move throughout head . has tightness in midback and up to neck. When would get a massage it would feel like a bruise when it is worked on. Feels better after though. Even just sitting upright, can feel it. Has had high BP and was on meds for a while and then went to gym and got off it. It is getting more elevated as she hasn't been able to go to the gym d/t 's injury. Stopped gym right before . was going consistantly since shcool year. Treatment Goals Patient/Caregiver Goals improve R shoulder mobility and dec pain w/reaching PT-OP-C Subjective Start: 05/12/24 14:50 Freq: Status: Active Protocol: Document 05/26/24 10:41 AB (Rec: 05/26/24 12:32 AB [id number]) OP-PT Subjective Patient Comments Patient Comments Patient reports she is worse, thinks it is from the bands ( gestures to sub deltoid area ) Comments waking up with pain and lifting items is painful. Patient reports she looped the band. (grocery bags. ) 139 deg AROM right shoulder flexion start of session. PT-OP-J Posture/Palpation/Skin Start: 05/12/24 14:50 Freq: Status: Active Protocol: Document 05/13/24 13:51 [facility] (Rec: 05/13/24 15:32 [facility] [id number]) Posture Evaluation [facility] Postural Classification System [facility] Postural Classifications Posterior/Anterior Elbow Flexion Test 0 Comments Posture Comments L pelvic shear, L thoracic rotation, R scap more ant rotated and abd, R shoulder lower than L, humer ant in glenoid R, fwd head, inc kyphosis PT-OP-K Range of Motion Start: 05/12/24 14:50 Freq: Status: Active Protocol: Document 05/13/24 13:51 [facility] (Rec: 05/13/24 15:32 [facility] [id number]) Cervical Spine Range of Motion Cervical Spine Active Degrees Flexion 50 Extension 53 Rotation Left 68 Rotation Right 78 Lateral Flexion Left 38 Lateral Flexion Right 35 Shoulder Goniometric Range of Motion Shoulder Right Active Flexion 154 Extension 32 Abduction 160 External Rotation at 0 degrees Abduction 68 Internal Rotation Behind Back (text) T9 Left Active Flexion 165 Extension 56 Abduction 168 External Rotation at 0 degrees Abduction 82 Internal Rotation Behind Back (text) T5 PT-OP-L Special Tests Start: 05/12/24 14:50 Freq: Status: Active Protocol: Document 05/13/24 13:51 [facility] (Rec: 05/13/24 15:32 [facility] [id number]) Special Tests Cervical Spine Special Tests tectoral membrane Test Results neg Alar Ligament Test Results neg arterial screen Test Results positional testing Neg Comments 152/96, ausciltation wnl Transverse Ligament Test Results neg compression/traction Test Results neg Shoulder Special Tests Monet Nirmal Impingement Comments postive R Empty Can Comments positive R [place] Test Comments more painful than speeds Speed's Biceps Comments mild pain Neer Impingement Comments neg Neural Special Tests- Upper Body Median Nerve Tension Comments positive R Radial Nerve Tension Comments neg R Ulnar Nerve Tension Comments negR PT-OP-M Strength Start: 05/12/24 14:50 Freq: Status: Active Protocol: Document 05/13/24 13:51 [facility] (Rec: 05/13/24 15:32 [facility] [id number]) Shoulder Strength Shoulder Manual Muscle Testing Right Flexion 4- Good- Extension 3+ Fair+ Abduction (C5) 4- Good- External Rotation 4- Good- Internal Rotation 4 Good Left Flexion 5 Normal Extension 5 Normal Abduction (C5) 5 Normal External Rotation 5 Normal Internal Rotation 5 Normal Elbow/Forearm Strength Elbow and Forearm Manual Muscle Testing Right Flexion (C6) 4 Good Left Flexion (C6) 5 Normal PT-OP-Q Treatments Start: 05/12/24 14:50 Freq: Status: Active Protocol: Document 05/26/24 10:41 AB (Rec: 05/26/24 12:32 AB [id number]) Therapeutic Exercises Supine Exercises mini band Supine Exercise Name er with flexion Side bilateral Resistance level one latex free band Reps/Minutes X5 Comments verbal cues alt UE flex on 1/2 foam Side bilateral Equipment Used soft 1/2 foam roller Reps/Minutes X1 Comments 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 Reps/Minutes one minute Comments verbal cues Sitting Exercises stretches Sitting Exercise Name scalenes Side bilateral Reps/Minutes 30 sec each side Comments verbal cues Standing Exercises ER Side bilateral Equipment Used level one peach Reps/Minutes X15 Comments verbal cues for single thickness, thumbs up row Side bilateral Equipment Used [place], orange, peach latex free Reps/Minutes X4 [place] X 11 orange X 10 peach Comments visual cues, limited by pain Manual Therapy Treatment Consent Patient gave verbal consent for manual Yes treatment Soft Tissue Mobilization anterior Body Location R pec Mobilization Type Cross-Friction,Rolling Intensity/Depth Moderate Body Position Supine superior Body Location R UT, LS & scalenes & SCM Mobilization Type Cross-Friction,Rolling, Sustained Pressure Intensity/Depth Moderate Body Position seated and sidelying posterior Body Location R lat, parascapular muscles Mobilization Type Cross-Friction,Rolling Intensity/Depth Moderate Body Position Sidelying Joint Mobilizations scapular Joint R Direction into dep and add Grade IV Body Position Sidelying Reps/Duration X10 GH Joint right GH Direction inf and AP Grade IV Body Position Hooklying Reps/Duration X10 each AC Joint inf R AC and SC Direction inf Grade III Body Position Sitting Reps/Duration X10 Comments III AC II SC ribs Joint 1st rib Direction inf Grade III Body Position Sitting Reps/Duration X10 PT-OP-T Assessment and Plan Start: 05/12/24 14:50 Freq: Status: Active Protocol: Document 05/26/24 10:41 AB (Rec: 05/26/24 12:32 AB [id number]) Physical Therapy Assessment Rehab Potential Rehabilitation Potential Good Evaluation Complexity Number of Personal Factors/Comorbidities 3 or More Number of Body Systems Impaired 4 or More Clinical Presentation at Evaluation Evolving Impairments Impairments Activity Tolerance,Functional Activities,Functional Mobility ,Pain,Posture,ROM,Soft Tissue Mobility,Strength Other Concerns Barriers to Rehabilitation high deductible Goals strength Short Term Goal (STG) Pt will be indep w/HEP STG Duration 06/13/24 [facility] Goal (LTG) pt will score at least 4+/5 on all RUE MMT and at least 4/5 EFT to show improved scap stability to allow for improved daily activities w/o inc pain. LTG Duration 07/14/24 ROM Mcfp Goal (LTG) Pt will have equal ROM to L side w/o inc pain in order to allow normal daily activites LTG Duration 07/22/24 activities Short Term Goal (STG) Pt will be able to sleep w/o being awoken d/t R shoulder pain. STG Duration 06/13/24 Bottling Attendant Goal (LTG) Pt will be dress, reach behind and across w/o inc pain in R shoulder LTG Duration 07/14/24 Assessment Summary Assessment [place] rates right shoulder pain 07/14 end of session, AROM 155 deg flexion right shoulder end of session. Reports Decreased pain on initiating flexion from hooklying with ER with level on band, but fatigues rapidly. Physical Therapy Plan Frequency and Duration Frequency of Treatment 1-2x/wk Duration of treatment (weeks) 10 Plan of Care Start Date 05/13/24 Plan of Care End Date 07/22/24 Next Visit Focus/Plan Next Note Type Treatment Note Next Visit Plan review HEP: rows, ER, chin tuck Try: plank, 1/2 foam roll with mini band ext trial, Habd Manual: upper tspine, SC, AC, ribs, GHJ and STM around shoulder
--- NOTE | 2024-06-09 18:08 | PT.OTN ---
Current Diagnoses Pain in right shoulder (06/09/24) Pain in right arm (06/09/24) Physical Therapy Treatment Note PT-OP-A Visit Information Start: 05/12/24 14:50 Freq: Status: Active Protocol: Document 06/09/24 16:19 [facility] (Rec: 06/09/24 18:08 [facility] [id number]) Out-Patient Physical Therapy Visit Information Visit Information Visit Type Treatment Note Visit Start Time 17:05 Visit Stop Time 17:45 Visit Number 4 Number of LAB ANIMAL TECHNOLOGIST Visits 0 PT-OP-B Current Condition Start: 05/12/24 14:50 Freq: Status: Active Protocol: Document 05/13/24 13:51 [facility] (Rec: 05/13/24 15:32 [facility] [id number]) Current Condition History of Current Condition Current Complaints November 2023 History of Current Condition pt did something this year to her arm and thinks it was doing a pec stretch in doorway the massage therapist told her might help some of her tension in back. The next am woke up w/excruitating pain in arm w/reaching, wb etc. Took a while to be seen by doctor and seh said thought is impingment. Can now put wt into but hurts to reach out or behind and still wakes her if she moves her arm the wrong way in the middle of the night . Was doing ice and ibuprofen but stopped ibuprofen but didn 't make a difference. Pain isn 't lessening. Mom let her borrow tens unit. Feels good on but doesn't fix anything. denies numbness/tingling. 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 Can feel like a soreness/heaviness w/ fwd flex but it's not really painful. Doesn't get in the way at work. Pt started getting neck pain 2.5 years ago started getting really back neck pain and MEJÍA. Used to be daily. have been getting worse again the past couple months. Gets really painful periods and can get dizziness associated w/this but takes meds for it. Has been dx w/ PCOS. HAs are all over and they will move throughout head . has tightness in midback and up to neck. When would get a massage it would feel like a bruise when it is worked on. Feels better after though. Even just sitting upright, can feel it. Has had high BP and was on meds for a while and then went to gym and got off it. It is getting more elevated as she hasn't been able to go to the gym d/t 's injury. Stopped gym right before . was going consistantly since shcool year. Treatment Goals Patient/Caregiver Goals improve R shoulder mobility and dec pain w/reaching PT-OP-C Subjective Start: 05/12/24 14:50 Freq: Status: Active Protocol: Document 06/09/24 16:19 [facility] (Rec: 06/09/24 18:08 [facility] [id number]) OP-PT Subjective Patient Comments Patient Comments Pt reports she was sore for 3 days after last session, but did okay after that and was able to do bands PT-OP-J Posture/Palpation/Skin Start: 05/12/24 14:50 Freq: Status: Active Protocol: Document 05/13/24 13:51 [facility] (Rec: 05/13/24 15:32 [facility] [id number]) Posture Evaluation [facility] Postural Classification System [facility] Postural Classifications Posterior/Anterior Elbow Flexion Test 0 Comments Posture Comments L pelvic shear, L thoracic rotation, R scap more ant rotated and abd, R shoulder lower than L, humer ant in glenoid R, fwd head, inc kyphosis PT-OP-K Range of Motion Start: 05/12/24 14:50 Freq: Status: Active Protocol: Document 05/13/24 13:51 [facility] (Rec: 05/13/24 15:32 [facility] [id number]) Cervical Spine Range of Motion Cervical Spine Active Degrees Flexion 50 Extension 53 Rotation Left 68 Rotation Right 78 Lateral Flexion Left 38 Lateral Flexion Right 35 Shoulder Goniometric Range of Motion Shoulder Right Active Flexion 154 Extension 32 Abduction 160 External Rotation at 0 degrees Abduction 68 Internal Rotation Behind Back (text) T9 Left Active Flexion 165 Extension 56 Abduction 168 External Rotation at 0 degrees Abduction 82 Internal Rotation Behind Back (text) T5 PT-OP-L Special Tests Start: 05/12/24 14:50 Freq: Status: Active Protocol: Document 05/13/24 13:51 [facility] (Rec: 05/13/24 15:32 [facility] [id number]) Special Tests Cervical Spine Special Tests tectoral membrane Test Results neg Alar Ligament Test Results neg arterial screen Test Results positional testing Neg Comments 152/96, ausciltation wnl Transverse Ligament Test Results neg compression/traction Test Results neg Shoulder Special Tests Monet Nirmal Impingement Comments postive R Empty Can Comments positive R [place] Test Comments more painful than speeds Speed's Biceps Comments mild pain Neer Impingement Comments neg Neural Special Tests- Upper Body Median Nerve Tension Comments positive R Radial Nerve Tension Comments neg R Ulnar Nerve Tension Comments negR PT-OP-M Strength Start: 05/12/24 14:50 Freq: Status: Active Protocol: Document 05/13/24 13:51 [facility] (Rec: 05/13/24 15:32 [facility] [id number]) Shoulder Strength Shoulder Manual Muscle Testing Right Flexion 4- Good- Extension 3+ Fair+ Abduction (C5) 4- Good- External Rotation 4- Good- Internal Rotation 4 Good Left Flexion 5 Normal Extension 5 Normal Abduction (C5) 5 Normal External Rotation 5 Normal Internal Rotation 5 Normal Elbow/Forearm Strength Elbow and Forearm Manual Muscle Testing Right Flexion (C6) 4 Good Left Flexion (C6) 5 Normal PT-OP-Q Treatments Start: 05/12/24 14:50 Freq: Status: Active Protocol: Document 06/09/24 16:19 [facility] (Rec: 06/09/24 18:08 [facility] [id number]) Therapeutic Exercises Sidelying Exercises open book Side bilateral Reps/Minutes L x4; Rx8 Sitting Exercises stretches Sitting Exercise Name LS, UT Side right Reps/Minutes 15 sec ea Comments quick review for difference Standing Exercises flex Standing Exercise Name elbows bent ER isometric w/ flex up wall Side bilateral Equipment Used peach Reps/Minutes 10 ER Side bilateral Equipment Used level one peach Reps/Minutes 8 Comments cues for control and no scap elevation row Side bilateral Equipment Used peach band Reps/Minutes 10 Comments cues scap Manual Therapy Treatment Consent Patient gave verbal consent for manual Yes treatment Soft Tissue Mobilization anterior Body Location R pec & biceps Mobilization Type Rolling Intensity/Depth Moderate Body Position Supine Comments w/ER & ext posterior Body Location R lat, parascapular muscles Mobilization Type Rolling,Sustained Pressure Intensity/Depth Moderate Body Position Sidelying Comments w/scap movement Joint Mobilizations thoracic Comments UPA R T2-4; 6-7 w/percussion & manual c/r GH Joint R post and distraction AC Joint R ant clavicle c/r Body Position Sidelying PT-OP-T Assessment and Plan Start: 05/12/24 14:50 Freq: Status: Active Protocol: Document 06/09/24 16:19 [facility] (Rec: 06/09/24 18:08 [facility] [id number]) Physical Therapy Assessment Goals strength Short Term Goal (STG) Pt will be indep w/HEP STG Duration 06/13/24 Loss Claim Clerk Goal (LTG) pt will score at least 4+/5 on all RUE MMT and at least 4/5 EFT to show improved scap stability to allow for improved daily activities w/o inc pain. LTG Duration 07/14/24 ROM Loss Claim Clerk Goal (LTG) Pt will have equal ROM to L side w/o inc pain in order to allow normal daily activites LTG Duration 07/22/24 activities Short Term Goal (STG) Pt will be able to sleep w/o being awoken d/t R shoulder pain. STG Duration 06/13/24 Skilled Nursing Goal (LTG) Pt will be dress, reach behind and across w/o inc pain in R shoulder LTG Duration 07/14/24 Assessment Summary Assessment Pt had improved ext after manual w/less pain noted. Notes no inc in pain w/session today. Pt did well w/ exercsies w/o inc pain Physical Therapy Plan Frequency and Duration Frequency of Treatment 1-2x/wk Duration of treatment (weeks) 10 Plan of Care Start Date 05/13/24 Plan of Care End Date 07/22/24 Next Visit Focus/Plan Next Note Type Treatment Note Next Visit Plan assess response to tape review flex and IR exercise Try abd, and plank/quadruped stability Manual: upper tspine, SC, AC, ribs, GHJ and STM
--- NOTE | 2024-06-17 17:05 | PT.OTN ---
Current Diagnoses Pain in right shoulder (06/17/24) Pain in right arm (06/17/24) Physical Therapy Treatment Note PT-OP-A Visit Information Start: 05/12/24 14:50 Freq: Status: Active Protocol: Document 06/17/24 16:16 [facility] (Rec: 06/17/24 17:05 [facility] [id number]) Out-Patient Physical Therapy Visit Information Visit Information Visit Type Progress Note Visit Start Time 16:18 Visit Stop Time 17:00 Visit Number 5 Number of [employer]ICER Visits 0 PT-OP-B Current Condition Start: 05/12/24 14:50 Freq: Status: Active Protocol: Document 05/13/24 13:51 [facility] (Rec: 05/13/24 15:32 [facility] [id number]) Current Condition History of Current Condition Current Complaints November 2023 History of Current Condition pt did something this year to her arm and thinks it was doing a pec stretch in doorway the massage therapist told her might help some of her tension in back. The next am woke up w/excruitating pain in arm w/reaching, wb etc. Took a while to be seen by doctor and seh said thought is impingment. Can now put wt into but hurts to reach out or behind and still wakes her if she moves her arm the wrong way in the middle of the night . Was doing ice and ibuprofen but stopped ibuprofen but didn 't make a difference. Pain isn 't lessening. Mom let her borrow tens unit. Feels good on but doesn't fix anything. denies numbness/tingling. 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 Can feel like a soreness/heaviness w/ fwd flex but it's not really painful. Doesn't get in the way at work. Pt started getting neck pain 2.5 years ago started getting really back neck pain and MEJÍA. Used to be daily. have been getting worse again the past couple months. Gets really painful periods and can get dizziness associated w/this but takes meds for it. Has been dx w/ PCOS. HAs are all over and they will move throughout head . has tightness in midback and up to neck. When would get a massage it would feel like a bruise when it is worked on. Feels better after though. Even just sitting upright, can feel it. Has had high BP and was on meds for a while and then went to gym and got off it. It is getting more elevated as she hasn't been able to go to the gym d/t 's injury. Stopped gym right before . was going consistantly since shcool year. Treatment Goals Patient/Caregiver Goals improve R shoulder mobility and dec pain w/reaching PT-OP-C Subjective Start: 05/12/24 14:50 Freq: Status: Active Protocol: Document 06/17/24 16:16 [facility] (Rec: 06/17/24 17:05 [facility] [id number]) OP-PT Subjective Patient Comments Patient Comments Isn't sure if noticed a change w/tape. PT-OP-J Posture/Palpation/Skin Start: 05/12/24 14:50 Freq: Status: Active Protocol: Document 05/13/24 13:51 [facility] (Rec: [facility]13/24 [id number] Posture Evaluation [facility] Postural Classification System [facility] Postural Classifications Posterior/Anterior Elbow Flexion Test 0 Comments Posture Comments L pelvic shear, L thoracic rotation, R scap more ant rotated and abd, R shoulder lower than L, humer ant in glenoid R, fwd head, inc kyphosis PT-OP-K Range of Motion Start: 05/12/24 14:50 Freq: Status: Active Protocol: Document 06/17/24 16:16 [facility] (Rec: 06/17/24 17:05 [facility] [id number]) Shoulder Goniometric Range of Motion Shoulder Right Active Flexion 165 Extension 56 Abduction 180 External Rotation at 0 degrees Abduction 75 Internal Rotation Behind Back (text) T7 Comments pinch w/end range abd, minor pain w/IR PT-OP-L Special Tests Start: 05/12/24 14:50 Freq: Status: Active Protocol: Document 05/13/24 13:51 [facility] (Rec: 05/13/24 15:32 [facility] [id number]) Special Tests Cervical Spine Special Tests tectoral membrane Test Results neg Alar Ligament Test Results neg arterial screen Test Results positional testing Neg Comments 152/96, ausciltation wnl Transverse Ligament Test Results neg compression/traction Test Results neg Shoulder Special Tests Monet Nirmal Impingement Comments postive R Empty Can Comments positive R Ipswich Test Comments more painful than speeds Speed's Biceps Comments mild pain Neer Impingement Comments neg Neural Special Tests- Upper Body Median Nerve Tension Comments positive R Radial Nerve Tension Comments neg R Ulnar Nerve Tension Comments negR PT-OP-M Strength Start: 05/12/24 14:50 Freq: Status: Active Protocol: Document 06/17/24 16:16 [facility] (Rec: 06/17/24 17:05 [facility] [id number]) Shoulder Strength Shoulder Manual Muscle Testing Right Flexion 4 Good Extension 4- Good- Abduction (C5) 4+ Good+ External Rotation 4 Good Internal Rotation 5 Normal Comments pain ER, flex, ext, abd Left Flexion 5 Normal Extension 5 Normal Abduction (C5) 5 Normal External Rotation 5 Normal Internal Rotation 5 Normal PT-OP-Q Treatments Start: 05/12/24 14:50 Freq: Status: Active Protocol: Document 06/17/24 16:16 [facility] (Rec: 06/17/24 17:05 [facility] [id number]) Therapeutic Exercises Sidelying Exercises open book Side right Reps/Minutes 5 Comments w/R knee tucked into back of L knee Standing Exercises flex Standing Exercise Name elbows bent ER isometric w/ flex up wall Side bilateral Equipment Used peach Reps/Minutes 10 ER Side bilateral Equipment Used orange Reps/Minutes 10 row Side bilateral Equipment Used peach band Reps/Minutes 2x10 Comments cues scap down and together Other Exercises AROM Other Exercise Name R shoulder isometrics Other Exercise Name UE MMT Manual Therapy Treatment Consent Patient gave verbal consent for manual Yes treatment Soft Tissue Mobilization UE Body Location circumfrential Mobilization Type Myofascial Release Comments w/IR/ER 90 deg superior Body Location R ant and mid delt Mobilization Type Rolling,Sustained Pressure Intensity/Depth Moderate Comments manual and cupping Joint Mobilizations GH Comments R post, distraction, lat gapping, post translation, inf and post w/IR 90/90 PT-OP-T Assessment and Plan Start: 05/12/24 14:50 Freq: Status: Active Protocol: Document 06/17/24 16:16 [facility] (Rec: 06/17/24 17:05 [facility] [id number]) Physical Therapy Assessment Goals strength Short Term Goal (STG) Pt will be indep w/HEP STG Duration achieved advancing as able Retirement Goal (LTG) pt will score at least 4+/5 on all RUE MMT and at least 4/5 EFT to show improved scap stability to allow for improved daily activities w/o inc pain. 06/17-much improved LTG Duration 07/14/24 ROM Retirement Goal (LTG) Pt will have equal ROM to L side w/o inc pain in order to allow normal daily activites 06/17-mostly equal ROM but some pain w/end ranges LTG Duration 07/22/24 activities Short Term Goal (STG) Pt will be able to sleep w/o being awoken d/t R shoulder pain. 06/17-no change-when turns wakes her STG Duration 06/13/24 Retirement Goal (LTG) Pt will be dress, reach behind and across w/o inc pain in R shoulder 06/17-can still feel something but not that bad 08/11 now LTG Duration 07/14/24 Assessment Summary Assessment Pt able to advance ER to orange band and able to get rows to not be painful after cues for scap and form. She is improving w/ROM and strength and overall pain w/PT but still does have pain at end ranges. Cont PT to improve this. Physical Therapy Plan Frequency and Duration Frequency of Treatment 1-2x/wk Duration of treatment (weeks) 10 Plan of Care Start Date 05/13/24 Plan of Care End Date 07/22/24 Therapeutic Interventions Therapeutic Interventions Home Exercise Program,Joint Mobilizations,Manual Therapy, Neuromuscular Re-education, Orthotic/Prosthetic Management ,Patient/Caregiver Education, Self-Care/Home Management,Soft Tissue Mobilization,Taping, Therapeutic Activities, Therapeutic Exercises Modalities Cold Pack/Ice Massage,Electric Stimulation,Hot Packs, Infrared Therapy,Ultrasound Next Visit Focus/Plan Next Note Type Treatment Note Next Visit Plan Try abd, and plank/quadruped stability Manual: upper tspine, SC, AC, ribs, GHJ and STM
--- NOTE | 2024-07-07 15:17 | PT.OPDS ---
Current Diagnoses Pain in right shoulder (06/17/24) Pain in right arm (06/17/24) Visit Care Team Role Provider Type Gela Butler MD Attending Provider Physician Family Provider Primary Care Provider Referring Provider Specialty: Family Practice Address: [address] [place] [address], [address], [place], [address] Email: [email or web address] Visit Number Visit Number 5 Discharge Summary PT-OP-B Current Condition Start: 05/12/24 14:50 Freq: Status: Active Protocol: Document 05/13/24 13:51 [facility] (Rec: 05/13/24 15:32 [facility] [id number]) Current Condition History of Current Condition Current Complaints November 2023 History of Current Condition pt did something this year to her arm and thinks it was doing a pec stretch in doorway the massage therapist told her might help some of her tension in back. The next am woke up w/excruitating pain in arm w/reaching, wb etc. Took a while to be seen by doctor and se said thought is impingment. Can now put wt into but hurts to reach out or behind and still wakes her if she moves her arm the wrong way in the middle of the night . Was doing ice and ibuprofen but stopped ibuprofen but didn 't make a difference. Pain isn 't lessening. Mom let her borrow tens unit. Feels good on but doesn't fix anything. denies numbness/tingling. 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 Can feel like a soreness/heaviness w/ fwd flex but it's not really painful. Doesn't get in the way at work. Pt started getting neck pain 2.5 years ago started getting really back neck pain and MEJÍA. Used to be daily. have been getting worse again the past couple months. Gets really painful periods and can get dizziness associated w/this but takes meds for it. Has been dx w/ PCOS. HAs are all over and they will move throughout head . has tightness in midback and up to neck. When would get a massage it would feel like a bruise when it is worked on. Feels better after though. Even just sitting upright, can feel it. Has had high BP and was on meds for a while and then went to gym and got off it. It is getting more elevated as she hasn't been able to go to the gym d/t 's injury. Stopped gym right before . was going consistantly since shcool year. Treatment Goals Patient/Caregiver Goals improve R shoulder mobility and dec pain w/reaching PT-OP-C Subjective Start: 05/12/24 14:50 Freq: Status: Active Protocol: Document 06/17/24 16:16 [facility] (Rec: 06/17/24 17:05 [id number]-PT Subjective Patient Comments Patient Comments Isn't sure if noticed a change w/tape. PT-OP-J Posture/Palpation/Skin Start: 05/12/24 14:50 Freq: Status: Active Protocol: Document 05/13/24 13:51 [facility] (Rec: 05/13/24 15:32 [id number] Posture Evaluation [facility] Postural Classification System [facility] Postural Classifications Posterior/Anterior Elbow Flexion Test 0 Comments Posture Comments L pelvic shear, L thoracic rotation, R scap more ant rotated and abd, R shoulder lower than L, humer ant in glenoid R, fwd head, inc kyphosis PT-OP-K Range of Motion Start: 05/12/24 14:50 Freq: Status: Active Protocol: Document 06/17/24 16:16 [facility] (Rec: 06/17/24 17:05 [facility] [id number]) Shoulder Goniometric Range of Motion Shoulder Right Active Flexion 165 Extension 56 Abduction 180 External Rotation at 0 degrees Abduction 75 Internal Rotation Behind Back (text) T7 Comments pinch w/end range abd, minor pain w/IR PT-OP-L Special Tests Start: 05/12/24 14:50 Freq: Status: Active Protocol: Document 05/13/24 13:51 [facility] (Rec: 05/13/24 15:32 [facility] [id number]) Special Tests Cervical Spine Special Tests tectoral membrane Test Results neg Alar Ligament Test Results neg arterial screen Test Results positional testing Neg Comments 152/96, ausciltation wnl Transverse Ligament Test Results neg compression/traction Test Results neg Shoulder Special Tests Monet Nirmal Impingement Comments postive R Empty Can Comments positive R [place] Test Comments more painful than speeds Speed's Biceps Comments mild pain Neer Impingement Comments neg Neural Special Tests- Upper Body Median Nerve Tension Comments positive R Radial Nerve Tension Comments neg R Ulnar Nerve Tension Comments negR PT-OP-M Strength Start: 05/12/24 14:50 Freq: Status: Active Protocol: Document 06/17/24 16:16 [facility] (Rec: 06/17/24 17:05 [facility] [id number]) Shoulder Strength Shoulder Manual Muscle Testing Right Flexion 4 Good Extension 4- Good- Abduction (C5) 4+ Good+ External Rotation 4 Good Internal Rotation 5 Normal Comments pain ER, flex, ext, abd Left Flexion 5 Normal Extension 5 Normal Abduction (C5) 5 Normal External Rotation 5 Normal Internal Rotation 5 Normal PT-OP-T Assessment and Plan Start: 05/12/24 14:50 Freq: Status: Active Protocol: Document 07/07/24 15:15 [facility] (Rec: 07/07/24 15:17 [facility] [id number]) Physical Therapy Assessment Goals strength Short Term Goal (STG) Pt will be indep w/HEP STG Duration achieved advancing as able [facility]sp Goal (LTG) pt will score at least 4+/5 on all RUE MMT and at least 4/5 EFT to show improved scap stability to allow for improved daily activities w/o inc pain. 06/17-much improved LTG Duration 07/14/24 ROM Healthcare Social Worker Goal (LTG) Pt will have equal ROM to L side w/o inc pain in order to allow normal daily activites 06/17-mostly equal ROM but some pain w/end ranges LTG Duration 07/22/24 activities Short Term Goal (STG) Pt will be able to sleep w/o being awoken d/t R shoulder pain. 06/17-no change-when turns wakes her STG Duration 06/13/24 Healthcare Social Worker Goal (LTG) Pt will be dress, reach behind and across w/o inc pain in R shoulder 06/17-can still feel something but not that bad 08/11 now LTG Duration 07/14/24 Assessment Summary Assessment Per message from front end architect staff: patient received her May bill and can not afford to continue with PT. I offered her the Chair[employer] Care Packet and she said she does not qualify. pt had improvements in strength and ROM overall but still inc pain that limited her w/sleeping, but had improved daily pain w/activity to 08/11. DC d/t pt request Physical Therapy Plan Discharge Physical Therapy Discharge Reasons Patient Request
== END 2024-07-11 10:13 | disposition home or self-care (01) ==
LOC: PHYS 16:15
PROVIDERS: Family Provider Family Medicine; PCP Family Medicine; Referring Provider Family Medicine; Visit Provider Family Medicine
DX: M25.511 Pain in right shoulder (principal); M79.601 Pain in right arm
CPT/HCPCS: 97110; 97140; 97162; 97535

== ENCOUNTER → 2024-11-15 09:37 | Outpatient (CLI) | payer OTHER, SELFPAY ==
--- NOTE | 2024-11-15 09:40 | DI.MG.S_ITS ---
MM screening mammo BI: 11/15/2024. BI-RADS: 1 CLINICAL: 44-year old female for bilateral screening mammogram. Tyrer-Cuzick lifetime risk of 8.6%. No personal or first-degree family history of breast cancer. PRIOR EXAMS 11/15/2023, 12/06/2022, 11/08/2022, 11/07/2021. MAMMOGRAPHY TECHNIQUE: 2D and 3D (tomosynthesis) digital mammographic views obtained, with additional images as needed for full coverage. Current study was also evaluated with a Computer Aided Detection (CAD) system. DENSITY B. There are scattered areas of fibroglandular density. MAMMOGRAPHY FINDINGS Bilateral: No suspicious mass, asymmetry, microcalcification, or other abnormality seen. No significant change from comparison. IMPRESSION: * No evidence of malignancy. RECOMMENDATIONS Bilateral * Annual screening mammography. OVERALL ASSESSMENT CATEGORY BI-RADS-1: Negative. [employer] recommends annual screening mammography beginning at age 40 for women with average risk of breast cancer. ELECTRONICALLY SIGNED: Kat Zhou M.D. on 11/17/2024 at 03:02:56 PM PT Interpreting Station ID: [id number]
== END ==
LOC: MAMMO 09:38
PROVIDERS: Family Provider Family Medicine; PCP Family Medicine; Referring Provider Family Medicine; Visit Provider Family Medicine
DX: Z12.31 Encounter for screening mammogram for malignant neoplasm of breast (principal)
CPT/HCPCS: 77063; 77067

== ENCOUNTER → 2025-02-12 18:51 | Outpatient (CLI) | payer OTHER, SELFPAY ==
--- NOTE | 2025-02-12 18:52 | DI.MRI.S_ITS ---
PROCEDURE: MR SHOULDER RT WO CON INDICATIONS: shoulder pain TECHNIQUE: Noncontrast oblique coronal T2 fast spin echo with fat saturation, oblique sagittal T1 spin echo and T2 fast spin echo with fat saturation, axial T1 spin echo and T2 fast spin echo with fat saturation through the shoulder. COMPARISON: [facility], CR, XR SHOULDER RT 2+ VIEWS, 01/14/2025, 13:34. FINDINGS: Image quality: Excellent. Rotator cuff: Low to moderate grade bursal surface partial-thickness tear involving anterior to mid fibers of supraspinatus at its insertion on humeral head is seen extending to musculotendinous junction. Distal infraspinatus tendinosis is seen. Distal subscapularis tendinosis is also noted. No full-thickness rotator cuff tendon rupture. Sagittal images demonstrate no significant rotator cuff muscle atrophy. Bones and bursae: No bone marrow contusions or fractures. Mild acromioclavicular joint osteoarthritis with downward osteophyte formation depressing on musculotendinous junction of supraspinatus. Type 2 acromion without an os acromiale. Small amount of joint fluid and subacromial subdeltoid bursal fluid, no loose bodies. Capsule and soft tissues: There is signal abnormality and fraying involving superior anterior glenoid labrum at 12 to 2 o'clock position suggestive of superior anterior labral tear. Proximal long head of biceps tendinosis near its proximal insertion is seen. IMPRESSION: 1. Low to moderate grade bursal surface partial-thickness tear involving anterior to mid fibers of distal supraspinatus extending to musculotendinous junction. Distal infraspinatus and subscapularis tendinosis. No full-thickness rotator cuff tendon rupture. No significant rotator cuff muscle atrophy. 2. Mild acromioclavicular joint osteoarthritis. No fracture or dislocation. Small amount of joint effusion and subacromial subdeltoid bursal fluid, no loose bodies. 3. Suggestion of subtle superior anterior glenoid labral tear at 12 to 2 o'clock position. 4. Proximal intra-articular portion of long head of biceps tendinosis. Dictated by: John Estrada M.D. on 02/13/2025 at 9:19 Approved by: John Estrada M.D. on 02/13/2025 at 9:22
== END ==
LOC: MRI 18:51
PROVIDERS: Family Provider Family Medicine; PCP Family Medicine; Referring Provider Family Medicine; Visit Provider Family Medicine
DX: M75.111 Incomplete rotator cuff tear or rupture of right shoulder, not specified as traumatic (principal); M19.011 Primary osteoarthritis, right shoulder; M25.511 Pain in right shoulder; M25.411 Effusion, right shoulder
CPT/HCPCS: 73221